=== PATIENT | female | born 1975 | race Caucasian/White ===

== ENCOUNTER 2022-12-11 19:12 | Emergency (ER) | payer SELFPAY ==
--- NOTE | 2022-12-11 20:07 | EDPHYS ---
Physician Documentation [facility] Name: Edmund Jain Age: 47 yrs Sex: Female : 1975 Arrival Date: 12/11/2022 Time: 19:12 Bed DIS4 Private MD: EDILSON Physician Brijesh Francois HPI: 12/11 20:05 This 47 yrs old Female presents to ER via Ambulatory with complaints of Ear Pain. kb 20:05 The patient presents with drainage, pain, tenderness. The complaints affect the right kb ear. Onset: The symptoms/episode began/occurred 6 day(s) ago. Modifying factors: The symptoms are alleviated by nothing, the symptoms are aggravated by touching. Associated signs and symptoms: The patient has no apparent associated signs or symptoms. Severity of symptoms: At their worst the symptoms were moderate in the emergency department the symptoms are unchanged. The patient has not experienced similar symptoms in the past. The patient has not recently seen a physician. Pt reports ear pain for 6 days and drainage for 2 days. . 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 Flu vaccine is not up to date. - Social history:: Smoking status: Patient reports the use of cigarette tobacco products, smokes one-half pack cigarettes per day, Patient/guardian denies using alcohol, street drugs. ROS: 20:04 Constitutional: Negative for fever, chills, and weight loss. kb 20:05 ENT: Positive for drainage from ear(s), ear pain. kb 20:05 All other systems are negative. Exam: 20:05 Constitutional: This is a well developed, well nourished patient who is awake, alert, kb and in no acute distress. Head/Face: Normocephalic, atraumatic. Cardiovascular: Regular rate and rhythm with a normal S1 and S2. No gallops, murmurs, or rubs. No pulse deficits. Respiratory: Respirations even and unlabored. No increased work of breathing. Talking in full sentences Skin: Warm, dry with normal turgor. Normal color. MS/ Extremity: Pulses equal, no cyanosis. Neurovascular intact. Full, normal range of motion. Neuro: Awake and alert, GCS 15, oriented to person, place, time, and situation. Moves all extremities. Normal gait. 20:05 ENT: External ear(s): are unremarkable, Ear canal(s): purulent discharge, that is moderate, in the right canal, swelling, that is minimal, of the right canal, TM's: bulging, on the right, erythema, that is moderate, on the right. Vital Signs: 19:35 BP 139 / 86; Pulse 87; Resp 19 S; Temp 98.2(TE); Pulse Ox 99% on R/A; Weight 61.23 kg lg3 (R); Height 5 ft. 2 in. (R); Pain 6/10; 19:35 Body Mass Index 24.69 (61.23 kg, 157.48 cm) lg3 19:35 Pain Scale: Adult lg3 MDM: 19:53 Patient medically screened. armin 20:05 Differential diagnosis: otitis media, otitis externa, ruptured TM, foreign body, acute kb otalgia. Data reviewed: vital signs, nurses notes. Counseling: I had a detailed discussion with the patient and/or guardian regarding: the historical points, exam findings, and any diagnostic results supporting the discharge/admit diagnosis, the need for outpatient follow up, a family practitioner, to return to the emergency department if symptoms worsen or persist or if there are any questions or concerns that arise at home. Administered Medications: No medications were administered Disposition Summary: 12/11/22 20:06 Discharge Ordered Location: Home kb Condition: Stable kb Diagnosis - Otitis media, unspecified, right ear kb - Unspecified otitis externa, right ear kb Followup: kb - With: Emergency Department - When: As needed - Reason: Worsening of condition Followup: kb - With: Private Physician - When: 2 - 3 days - Reason: Recheck today's complaints, Continuance of care, Re-evaluation by your physician Discharge Instructions: - Discharge Summary Sheet kb - Otitis Externa, [id number] kb - Otitis Media, Adult, [id number] kb - Ear Drops, Adult, [id number] kb Forms: - Medication Reconciliation Form kb - Thank You Letter kb - Antibiotic Education kb - Prescription Opioid Use kb Prescriptions: - Amoxicillin 875 mg Oral Tablet - take 1 tablet by ORAL route every 12 hours for 10 days; 20 tablet; Refills: 0, kb Product Selection Permitted - Ciprodex 0.3-0.1 % Otic drops,suspension - instill 4 drops by OTIC route every 12 hours for 7 days , for ears ONLY; 1 kb unit; Refills: 0, Product Selection Permitted Signatures: Jimena Lopes, NOHEMI-Eddie SONG-Brijesh Lea MD MD cha Gibson, Lacie, RN RN lg3
--- NOTE | 2022-12-11 20:07 | ER ---
Nurse's Notes [facility] Name: Edmund Jain Age: 47 yrs Sex: Female : 1975 Arrival Date: 12/11/2022 Time: 19:12 Bed DIS4 Private MD: Diagnosis: Otitis media, unspecified, right ear;Unspecified otitis externa, right ear Presentation: 12/11 19:35 Chief complaint: Patient states: right ear pain starting last Sunday and lg3 progressively getting worse. now my face is red and hurting. there is also yellow bloody drainage coming from it. Coronavirus screen: Client denies travel out of the [place] in the last 14 days. At this time, the client does not indicate any symptoms associated with coronavirus-19. Ebola Screen: No symptoms or risks identified at this time. Initial Sepsis Screen: Does the patient meet any 2 criteria? No. Patient's initial sepsis screen is negative. Does the patient have a suspected source of infection? No. Patient's initial sepsis screen is negative. Risk Assessment: Do you want to hurt yourself or someone else? Patient reports no desire to harm self or others. Onset of symptoms is unknown. 19:35 Method Of Arrival: Ambulatory lg3 19:35 Acuity: TA 4 lg3 Triage Assessment: 19:38 General: Appears in no apparent distress. uncomfortable, Behavior is calm, cooperative. lg3 Pain: Complains of pain in right ear Pain currently is 6 out of 10 on a pain scale. at worst was 10 out of 10 on a pain scale. Noted to be grimacing, guarding, resistant to movement. EENT: Reports pain in right ear. Neuro: No deficits noted. Garcia Agitation-Sedation Scale (RASS): 0 - Alert and Calm Level of Consciousness is awake, alert, obeys commands, Oriented to person, place, time, situation. Cardiovascular: No deficits noted. Denies chest pain, shortness of breath, Capillary refill < 3 seconds Clubbing of nail beds is absent JVD is absent Patient's skin is warm and dry. Respiratory: No deficits noted. Airway is patent Trachea midline Respiratory effort is even, unlabored, Respiratory pattern is regular, symmetrical. GI: No deficits noted. No signs and/or symptoms were reported involving the gastrointestinal system. : No deficits noted. No signs and/or symptoms were reported regarding the genitourinary system. Derm: No deficits noted. Skin is intact, is healthy with good turgor, Skin is dry, Skin is normal, Skin temperature is warm. Musculoskeletal: No deficits noted. No signs and/or symptoms reported regarding the musculoskeletal system. Circulation, motion, and sensation intact. Range of motion: intact in all extremities. 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 Flu vaccine is not up to date. - Social history:: Smoking status: Patient reports the use of cigarette tobacco products, smokes one-half pack cigarettes per day, Patient/guardian denies using alcohol, street drugs. Screenin:19 [facility] ED Fall Risk Assessment (Adult) History of falling in the last 3 months, kd3 including since admission No falls in past 3 months (0 pts) Confusion or Disorientation No (0 pts) Intoxicated or Sedated No (0 pts) Impaired Gait No (0 pts) Mobility Assist Device Used No (0 pt) Altered Elimination No (0 pt) Score/Fall Risk Level 0 - 2 = Low Risk Maintained a safe environment. Abuse screen: Denies threats or abuse. Denies injuries from another. Nutritional screening: No deficits noted. Tuberculosis screening: No symptoms or risk factors identified. Vital Signs: 19:35 BP 139 / 86; Pulse 87; Resp 19 S; Temp 98.2(TE); Pulse Ox 99% on R/A; Weight 61.23 kg lg3 (R); Height 5 ft. 2 in. (R); Pain 6/10; 19:35 Body Mass Index 24.69 (61.23 kg, 157.48 cm) lg3 19:35 Pain Scale: Adult lg3 ED Course: 19:17 Patient arrived in ED. ag3 19:38 Triage completed. lg3 19:38 Arm band placed on right wrist. lg3 19:43 Jimena Lopes FNP-C is PHCP. kb 19:43 Brijesh Francois MD is Attending Physician. kb 20:19 Kaylee Jett, RN is Primary Nurse. kd3 20:19 No provider procedures requiring assistance completed. Patient did not have IV access kd3 during this emergency room visit. 20:20 Patient has correct armband on for positive identification. kd3 Administered Medications: No medications were administered Medication: 20:20 VIS not applicable for this client. kd3 Outcome: 20:06 Discharge ordered by . kb 20:19 Discharged to home ambulatory. kd3 20:19 Condition: stable 20:19 Discharge instructions given to patient, family, Instructed on discharge instructions, follow up and referral plans. medication usage, Demonstrated understanding of instructions, follow-up care, medications. 20:20 Patient left the ED. kd3 Signatures: Jimena Lopes, REVIT DRAFTER-C REVIT DRAFTER-Amy Sosa 3 Linda Shell, RN RN lg3 Kaylee Jett, RN RN kd3
[2022-12-11 21:19] VITALS: BP 139/86; TEMP 98.2; O2SAT 99
== END 2022-12-11 20:20 | disposition home or self-care (01) ==
LOC: ER 19:12
DX: H66.91 Otitis media, unspecified, right ear (principal); H60.91 Unspecified otitis externa, right ear
CPT/HCPCS: 99282